=== PATIENT | male | born 1945 | race Caucasian/White ===

== ENCOUNTER 2016-09-11 06:29 | Inpatient (IN) | payer MEDICARE, OTHER ==
[~2016-09-11] VITALS: Ht 175.3 cm; Wt 70.0 kg
[2016-09-11] VITALS (14 sets, daily range): BP systolic 127–193; BP diastolic 68–102; PULSE 85–94; RESP 6–19; O2SAT 91–100
[~2016-09-11 06:29] MED LIST: ASPI-973 PO; CHOL200047 PO; CeFAZolin Inj 2 GM in IV Premix 1 EACH IV ONE; LIP40 PO; Lactated Ringer's 1,000 ML IV SCH; MAGN500C4 PO; OMEP20CA11 PO; RES30 PO; VIT1TABL83 PO; cilostazol
--- NOTE | 2016-09-11 08:14 | PCM.HPANE ---
Patient Data Surgeon Admitting Provider: Attending Provider:Rose Kaufman MD Primary Care Physician:Tita Delgado PA-C Other Provider:Glenroy Ruelas Anesthesia Reason for Visit Epiphrenic Diverticulum EPIPHRENIC DIVERTICULUM Ht/WT & BMI Height (Feet): 5 Height (Inches): 9.00 Weight (Kilograms): 67.100 Body Mass Index 21.00 Allergies Coded Allergies: No Known Allergies (Verified Allergy, Mild, 04/27/16) Past Anesthesia History Anesthesia History: Denies:: Abnormal Airway, Anesthesia Reactions, Difficult Intubation, Fam Anesthesia Reaction, Fam Malignant Hypertherm, Malignant Hyperthermia Diabetes History Hx Diabetes?: No MRSA MRSA: No Medications Blood Thinner: Aspirin Hypertension Medication: No Home Meds Incl Beta Matthias: No Reported Medications Vit B Comp/C/FA/Iron/Vit E (Vitamin B Complex Tablet)1 Each Tablet1 Each PO DAILY 09/06/16 Temazepam 30 Mg Cap30 Mg PO HS PRN For Insomnia 30 Days Ref 0 09/06/16 Magnesium Oxide (Magnesium)500 Mg [id number] Mg PO DAILY 09/06/16 [cilostazol] No Conflict [id number] Mg BID 05/15/16 Cholecalciferol (Vitamin D3) (Vitamin D3)2,000 Unit Capsule2,000 Unit PO 09/04/15 Omeprazole 20 Mg Capsule.dr20 Mg PO BID Ref 0 09/04/15 Atorvastatin (Lipitor)40 Mg [id number] Mg PO DAILY Ref 0 09/04/15 Aspirin 81 Mg [id number] Mg PO DAILY Ref 0 09/04/15 History History of ENT Problems?: Yes HEENT History: Positive for:: Dysphagia (r/t acid reflux, multiple dilations) Denies:: Abnormal Airway Cataracts Difficult Intubation Hearing Problem Sinus Problem Hx of Heart Problems?: Yes Cardiovascular History: Positive for:: Peripheral Vascular (claudication) Denies:: Cardiac Surgery Chest Pain Congestive Heart Failure Edema Hypertension Irregular Heartbeat Pacemaker Thrombophlebitis Hx of Respiratory Problem?: No Respiratory History: Denies:: Asthma COPD Oxygen Administration Pneumonia Tuberculosis Use of C-PAP Machine Use of Inhalers / NEBS Hx Neurologic Problems?: Yes Neurological History: Denies:: CVA Headaches (migraines) Hx of GI Problems?: Yes Gastrointestinal History: Positive for:: Gastroesphageal Reflux (esophageal diverticulum current admission problem) Heartburn Rectal Bleeding (Bleeding polyp in past) Denies:: Diverticulitis Gastrointestinal Bleeding Hepatitis Hiatal Hernia Hx of Problems?: No Male Hx: Denies:: Prostate Problems Scrotal Mass Testicular Surgery Skin History: Denies:: History Skin Disorders? Pressure Ulcers Hx Musculoskeletal Problems?: Yes Musculoskeletal History: Positive for:: Musculoskeletal Trauma (hx of left bunionectomy) Denies:: Joint Replacement Hx of Psycho/Social Problems?: No Hx Surgeries?: No (calcification removed from Left foot; umbilical hernia repair) Hx Any Other Health Problems?: Yes Other History: Denies:: Cancer Hospitalization Thyroid Disease History Blood Transfusions: Denies:: Blood Transfuse Reaction Blood Transfusions Hx Diabetes: No Hx Alcohol Use: YesAlcoholic Drinks Per Day: 2 drinks eveningHx Substance Use : No Smoking Status: Former Smoker Have You Smoked inLast 12 mo: No Stop/Bang Treated for Sleep Apnea?: No Do You Have a CPAP Machine?: No S-Snoring: Do You Snore Loudly: No T-Tired: feel tired, fatigued: No O-Obsered: Observed not breath: No P-Blood Pressure: treated: No B- Body Mass Index > 35 kg/m2: No A- Age over 50: Yes N- Neck Large Circumference: No G- Gender Male: Yes JULIET Total Score: 2 JULIET Risk Assessment: Low Risk, <3 Yes Risk Assessment Category Category 1A: Patient has history of documented sleep apnea, and HAS NOT received any narcotic, sedative or anesthesia administration during this stay. Category 1B: Patient has history of documented sleep apnea, and HAS received any narcotic , sedative or anesthesia administration during this stay Category 2: Patient has SUSPECTED Obstructive Sleep Apnea, and HAS received any narcotic , sedative or anesthesia administration during this stay. Category 3: Patient has SUSPECTED Obstructive Sleep Apnea and HAS NOT received narcotic, sedative or anesthesia administration during this stay. Category 4: Outpatient in Procedural Areas with known sleep apnea or who screen positive for High Risk via the STOP/BANG questionnaire. Exam Exam Vital Signs Vital Signs Date Time Temp Pulse Resp B/P Pulse Ox O2 Delivery O2 Flow Rate FiO2 09/11/16 07:32 36.6 88 19 165/94 97 Room Air 09/11/16 06:57 36.6 88 19 165/94 97 Room Air General Appearance: Alert, Oriented X3, Cooperative, No Acute Distress HEENT/AIRWAY: MP 2 Lungs: Clear to Auscultation, Normal Air Movement Heart: Exam Unremarkable, Regular Rate/Rhythm, No Murmurs/Rubs/Gallops Plan Impression Patient chart reviewed, patient interviewed and anesthestic plan with risks, benefits, and alternatives discussed, and informed consent obtained. NPO Status: MN ASA Physical Status: ASA2 Mod Systemic Disease Anesthetic Plan: GA Bene/Risks/Altern/Consents: Yes HP Complete Prior to Induction: Yes Hai Mendez MD Sep 11, 2016 08:14
[2016-09-11] MEDS ORDERED: Bupivacaine 0.5%/EPI 50 mL Inj INFILTRATE ONE (08:35)
[2016-09-11] MEDS ORDERED: Lactated Ringer's 1,000 ML IV ONE ×4 (08:35→14:00)
[2016-09-11] MEDS ORDERED: Bupivacaine-MPF 0.5% W/EPI 30 mL Inj INFILTRATE ONE (09:42)
[2016-09-11 10:31] LABS: COLOR,URINE STRAW (YELLOW)
[2016-09-11 10:32] LABS: APPEARANCE,URINE HAZY (CLEAR,HAZY); OCCULT BLOOD,URINE SMALL (NEGATIVE); UROBILINOGEN,URINE 0.2 mg/dL (NORMAL)
[2016-09-11] MEDS: Acetaminophen 32.5 mg/mL 20 mL Liquid PO SCH ×2 (14:45→19:46)
[2016-09-11] MEDS ORDERED: HYDROmorphone 1 mg/mL Inj IVPUSH PRN ×2 (14:45→15:05)
[2016-09-11] MEDS ORDERED: Ondansetron 2 mg/mL 2 mL Inj IVPUSH PRN ×2 (14:45→15:05)
[2016-09-11] MEDS ORDERED: MetoCLOpramide 5 mg/mL 2 mL Inj IVPUSH PRN ×2 (14:45→15:05)
[2016-09-11] MEDS ORDERED: oxyCODONE 1 mg/mL 5 mL Liquid PO PRN (14:45)
[2016-09-11] MEDS ORDERED: Lactated Ringer's 500 ML IV PRN (15:04)
[2016-09-11] MEDS ORDERED: Lactated Ringer's 1,000 ML IV SCH (15:04)
[2016-09-11] MEDS ORDERED: EPHEDrine Sulfate 50 mg/mL Inj IVPUSH PRN (15:05)
[2016-09-11] MEDS ORDERED: Phenylephrine 10,000 mCg/mL Inj IVPUSH PRN (15:05)
[2016-09-11] MEDS ORDERED: fentaNYL-PF 50 mCg/mL 2 mL Inj IVPUSH PRN (15:05)
[2016-09-11] MEDS ORDERED: Dexamethasone 4 mg/mL Inj IVPUSH PRN (15:05)
--- NOTE | 2016-09-11 15:08 | PCM.HPANE ---
Patient Data Surgeon Admitting Provider: Attending Provider:Rose Kaufman MD Primary Care Physician:Tita Delgado PA-C Other Provider:Glenroy Ruelas Anesthesia Reason for Visit Epiphrenic Diverticulum EPIPHRENIC DIVERTICULUM Ht/WT & BMI Height (Feet): 5 Height (Inches): 9.00 Weight (Kilograms): 67.100 Body Mass Index 21.00 Allergies Coded Allergies: No Known Allergies (Verified Allergy, Mild, 04/27/16) Past Anesthesia History Anesthesia History: Denies:: Abnormal Airway, Anesthesia Reactions, Difficult Intubation, Fam Anesthesia Reaction, Fam Malignant Hypertherm, Malignant Hyperthermia Diabetes History Hx Diabetes?: No MRSA MRSA: No Medications Blood Thinner: Aspirin Hypertension Medication: No Home Meds Incl Beta Matthias: No Reported Medications Vit B Comp/C/FA/Iron/Vit E (Vitamin B Complex Tablet)1 Each Tablet1 Each PO DAILY 09/06/16 Temazepam 30 Mg Cap30 Mg PO HS PRN For Insomnia 30 Days Ref 0 09/06/16 Magnesium Oxide (Magnesium)500 Mg [id number] Mg PO DAILY 09/06/16 [cilostazol] No Conflict [id number] Mg BID 05/15/16 Cholecalciferol (Vitamin D3) (Vitamin D3)2,000 Unit Capsule2,000 Unit PO 09/04/15 Omeprazole 20 Mg Capsule.dr20 Mg PO BID Ref 0 09/04/15 Atorvastatin (Lipitor)40 Mg [id number] Mg PO DAILY Ref 0 09/04/15 Aspirin 81 Mg [id number] Mg PO DAILY Ref 0 09/04/15 History History of ENT Problems?: Yes HEENT History: Positive for:: Dysphagia (r/t acid reflux, multiple dilations) Denies:: Abnormal Airway Cataracts Difficult Intubation Hearing Problem Sinus Problem Hx of Heart Problems?: Yes Cardiovascular History: Positive for:: Peripheral Vascular (claudication) Denies:: Cardiac Surgery Chest Pain Congestive Heart Failure Edema Hypertension Irregular Heartbeat Pacemaker Thrombophlebitis Hx of Respiratory Problem?: No Respiratory History: Denies:: Asthma COPD Oxygen Administration Pneumonia Tuberculosis Use of C-PAP Machine Use of Inhalers / NEBS Hx Neurologic Problems?: Yes Neurological History: Denies:: CVA Headaches (migraines) Hx of GI Problems?: Yes Gastrointestinal History: Positive for:: Gastroesphageal Reflux (esophageal diverticulum current admission problem) Heartburn Rectal Bleeding (Bleeding polyp in past) Denies:: Diverticulitis Gastrointestinal Bleeding Hepatitis Hiatal Hernia Hx of Problems?: No Male Hx: Denies:: Prostate Problems Scrotal Mass Testicular Surgery Skin History: Denies:: History Skin Disorders? Pressure Ulcers Hx Musculoskeletal Problems?: Yes Musculoskeletal History: Positive for:: Musculoskeletal Trauma (hx of left bunionectomy) Denies:: Joint Replacement Hx of Psycho/Social Problems?: No Hx Surgeries?: No (calcification removed from Left foot; umbilical hernia repair) Hx Any Other Health Problems?: Yes Other History: Denies:: Cancer Hospitalization Thyroid Disease History Blood Transfusions: Denies:: Blood Transfuse Reaction Blood Transfusions Hx Diabetes: No Hx Alcohol Use: YesAlcoholic Drinks Per Day: 2 drinks eveningHx Substance Use : No Smoking Status: Former Smoker Have You Smoked inLast 12 mo: No Stop/Bang Treated for Sleep Apnea?: No Do You Have a CPAP Machine?: No S-Snoring: Do You Snore Loudly: No T-Tired: feel tired, fatigued: No O-Obsered: Observed not breath: No P-Blood Pressure: treated: No B- Body Mass Index > 35 kg/m2: No A- Age over 50: Yes N- Neck Large Circumference: No G- Gender Male: Yes JULIET Total Score: 2 JULIET Risk Assessment: Low Risk, <3 Yes Risk Assessment Category Category 1A: Patient has history of documented sleep apnea, and HAS NOT received any narcotic, sedative or anesthesia administration during this stay. Category 1B: Patient has history of documented sleep apnea, and HAS received any narcotic , sedative or anesthesia administration during this stay Category 2: Patient has SUSPECTED Obstructive Sleep Apnea, and HAS received any narcotic , sedative or anesthesia administration during this stay. Category 3: Patient has SUSPECTED Obstructive Sleep Apnea and HAS NOT received narcotic, sedative or anesthesia administration during this stay. Category 4: Outpatient in Procedural Areas with known sleep apnea or who screen positive for High Risk via the STOP/BANG questionnaire. Low Risk, <3 Yes Exam Exam Vital Signs Vital Signs Date Time Temp Pulse Resp B/P Pulse Ox O2 Delivery O2 Flow Rate FiO2 09/11/16 14:55 94 6 167/91 91 Room Air 09/11/16 14:50 89 12 159/88 100 Simple Mask 10 09/11/16 14:45 89 16 149/78 99 Simple Mask 10 09/11/16 14:39 36.4 91 12 127/68 100 Simple Mask 10 09/11/16 07:32 36.6 88 19 165/94 97 Room Air General Appearance: Alert, Oriented X3, Cooperative, No Acute Distress HEENT/AIRWAY: MP 2 Lungs: Clear to Auscultation, Normal Air Movement Heart: Exam Unremarkable, Regular Rate/Rhythm, No Murmurs/Rubs/Gallops Meds/Labs/Diagnostics Admission Meds Current Medications Cefazolin Sodium/ Dextrose 2 gm/ Premix 50 ml @ 100 mls/hr PREOP ONCE IV Last administered on 09/11/16 08:40; Start 09/11/16 at 06:00; Stop 09/11/16 at 06: 29; Status DC Lactated Ringer's 1,000 ml @ ud STK-MED ONCE IV Last administered on 09/11/16 08:35; Start 09/11/16 at 08:35; Stop 09/11/16 at 10:40; Status DC Lactated Ringer's 1,000 ml @ ud STK-MED ONCE IV Last administered on 09/11/16 10:23; Start 09/11/16 at 10:23; Stop 09/11/16 at 10:40; Status DC Lactated Ringer's (Lr) 1,000 ml @ ud STK-MED ONCE IV Last administered on 12:56; Start 09/11/16 at 12:56; Stop 09/11/16 at 12:57; Status DC Cefazolin Sodium (Ancef Inj) 2 gm STK-MED ONCE IVPUSH Last administered on 13:20; Start 09/11/16 at 13:20; Stop 09/11/16 at 13:32; Status DC Bupivacaine HCl/ Epinephrine Bitart 50 ml 50 ml STK-MED ONCE INFILTRATE Last administered on 09/11/16 08:35; Start 09/11/16 at 08:35; Stop 09/11/16 at 14:26; Status DC Lactated Ringer's (Lr) 1,000 ml @ ud STK-MED ONCE IV Last administered on 14:00; Start 09/11/16 at 14:00; Stop 09/11/16 at 14:27; Status DC Labs Test 09/11/16 10:14 Urine Color Straw (YELLOW) Urine Appearance Hazy (CLEAR,HAZY) Urine pH 8.0 (5.0-8.0) Urine Specific [place] 1.015 (1.003-1.035) Urine Protein Negativemg/dL (NEG,TRACE) Urine Glucose (UA) Negativemg/dL (NEGATIVE) Urine Ketones Tracemg/dL (NEGATIVE) Urine Occult Blood Small (NEGATIVE) Urine Nitrite Negative (NEGATIVE) Urine Bilirubin Negative (NEGATIVE) Urine Urobilinogen 0.2mg/dL (NORMAL) Urine Leukocyte Esterase Negative (NEGATIVE) Urine RBC 11-50/hpf (0-2) Urine WBC 0-5/hpf (0-5) Urine Epithelial Cells Occasional/hpf (NONE-MOD) Urine Crystals None seen (NONE SEEN) Urine Bacteria Few/hpf (NONE-FEW) Urine Hyaline Casts None/lpf (NONE) Urine Granular Casts None seen (NONE SEEN) Urine Waxy Casts None seen (NONE SEEN) Urine Red Blood Cell Casts None seen (NONE SEEN) Urine White Blood Cell Casts None seen (NONE SEEN) Urine Mucus Present (None Seen) Urine Trichomonas None seen (NONE SEEN) Urine Yeast None (NONE SEEN) Urinalysis Comment None Urine Culture Reflexed Not indicated Plan Impression Patient chart reviewed, patient interviewed and anesthestic plan with risks, benefits, and alternatives discussed, and informed consent obtained. NPO Status: 09/09/16 2200 ASA Physical Status: ASA2 Mod Systemic Disease Anesthetic Plan: GA Bene/Risks/Altern/Consents: Yes HP Complete Prior to Induction: Yes Hai Mendez MD Sep 11, 2016 15:08
--- NOTE | 2016-09-11 15:09 | PCM.ANEP1 ---
Post Anesthesia Phase 1 PACU Phase 1 Assessment Vital Signs Vital Signs Date Time Temp Pulse Resp B/P Pulse Ox O2 Delivery O2 Flow Rate FiO2 09/11/16 14:55 94 6 167/91 91 Room Air 09/11/16 14:50 89 12 159/88 100 Simple Mask 10 09/11/16 14:45 89 16 149/78 99 Simple Mask 10 09/11/16 14:39 36.4 91 12 127/68 100 Simple Mask 10 09/11/16 07:32 36.6 88 19 165/94 97 Room Air Anesthetic Administered: GA Level of Alertness: Sleepy, easy to arouse PENG's with Equal Strength: Yes Pain: No Nausea or Vomiting: No Airway Device: Endotrachial Tube Oxygen Delivery: Simple Mask Lungs: Clear to Auscultation, Normal Air Movement Dermatome Level: Full Sensation Hai Mendez MD Sep 11, 2016 15:09
--- NOTE | 2016-09-11 15:09 | PCM.ANEP2 ---
Post Anesthesia Evaluation ASA/CMS Post Anesthesia VS in Patient's Normal Range?: Yes Resp Stable; Airway Patent?: Yes CV Function & Hydration Stable: Yes Mental Status Recovered?: Yes Pain control Satisfactory?: Yes N/V Control Satisfactory?: Yes Hai Mendez MD Sep 11, 2016 15:09
[2016-09-11 15:23] LABS: Mean Corpuscular Volume 98.1 fL (81-100)
--- NOTE | 2016-09-11 16:09 | OP ---
[address] [address] OPERATIVE REPORT PATIENT: OBINNA RODRÍGUEZ : 1945 MR#: [id number] ADMIT: 09/11/2016 JOB ID: [id number] DATE OF SURGERY: 09/11/2016 PREOPERATIVE DIAGNOSIS(ES): Epiphrenic diverticulum with jackhammer esophagus. POSTOPERATIVE DIAGNOSIS(ES): Epiphrenic diverticulum with jackhammer esophagus. PROCEDURE PERFORMED: 1. Laparoscopic esophageal and extended gastric myotomy with Toupet fundoplication. 2. Upper endoscopy. SURGEON: Rose Kaufman MD. ASSISTANTS: Paul Clarke MD; Tavon Read PA-C; LOREN Coy. Dr. Clarke's presence was necessary for retraction and intraoperative decision making, and Tavon Read's presence was necessary for retraction and driving the camera. HISTORY OF PRESENT ILLNESS: This is a 71-year-old man with a history of many years of dysphagia. He was undergoing serial dilations by a health companion in [place] without effect. He then moved to this area and was found to have an epiphrenic diverticulum by his health companion here. He was referred to my clinic, and esophageal manometry was performed confirming the presence of a jackhammer esophagus. He also had a small hiatal hernia and a benign-appearing stricture distal to the epiphrenic diverticulum on upper endoscopy. Based on his overall findings, he was consented to esophageal myotomy to treat the jackhammer esophagus, with possible epiphrenic diverticulectomy depending on intraoperative findings. FINDINGS: 1. Extremely thick distal esophageal circular muscle layer distal to the epiphrenic diverticulum. 2. A long esophageal myotomy was completed, to 9 cm above the GE junction, which was at the base of the diverticulum. An extended gastric myotomy 3 cm onto the stomach was performed. DESCRIPTION OF PROCEDURE: The patient was brought to the operating room and placed in supine position. General anesthesia was induced. A warming blanket and SCDs were placed. Antibiotics were infused. The operative field was prepped and draped in sterile fashion. A pause was performed to confirm the correct patient, procedure, and site. A Veress needle was used via a 10-mm port site in the left upper quadrant to insufflate the abdomen. A trocar was inserted using Optiview technique. An additional 10-mm trocar was inserted in the left mid abdomen. Two additional 5-mm ports were placed in the left lateral and left mid abdomen, a 5-mm port was placed in the right upper abdomen, and in the right lateral abdomen, initially a 5-mm port was placed for the use of the liver retractor, but ultimately had to be upsized to 10 mm in order to use the paddle retractor due to the size of the liver. The stomach was identified, and the phrenogastric ligament was taken down sharply. The short gastrics were taken down using the LigaSure device. Dissection of the hiatus began on the left. The phrenogastric ligament was divided, and the mediastinum was entered. A circumferential dissection was begun at this location. It proceeded from anterior to posterior and then attention was moved to the right. The gastrohepatic ligament was divided up to the right jermaine and the mediastinum was entered on the right. The circumferential dissection at the hiatus was completed, and a [place] drain was inserted and placed around the esophagus at the GE junction. Once the esophagus could be retracted using the [place], the circumferential dissection proceeded proximally high into the mediastinum. The inferior aspect of the epiphrenic diverticulum was identified several cm above the hiatus. Upper endoscopy was then performed to confirm the location of the epiphrenic diverticulum. The esophagus, as noted before surgery, was very torturous and appeared to be strictured distal to the diverticulum. In particular, right at the GE junction, the scope could only be passed into the stomach with a fair amount of gentle pressure because the stricture had worsened even in the interval since the previous endoscopy. The diverticulum was found to be full of old foodstuff and was located at least 6 cm above the hiatus. Dr. Clarke observed the endoscopy via laparoscopy while I advanced the scope in the stomach. Once the endoscopy was complete, the scope was left with the tip in the stomach to be used later in the case. At this point, the diverticulum was noted to be high enough in the mediastinum that the decision was made to proceed with myotomy only. As noted above, the patient had been extensively counseled to this possibility preoperatively. The anterior vagus was then identified and preserved while the GE junction fat pad was removed to expose the anterior aspect of the lower esophageal sphincter. The GE junction fat pad was then removed from the body and discarded. Of note, the posterior vagus was also identified and preserved throughout the case. The myotomy was then began 1 cm proximal to the gastroesophageal junction with retraction onto the endoscope which was still in place. This progressed proximally. As the myotomy progressed, it became evident that the circular layer of muscle was extremely thick and hypertrophied in the location just distal to the diverticulum. As I was dissecting in the mediastinum, it appeared to be at least 0.75-1 cm in thickness at this layer. Based on esophageal manometry, the goal was to complete the myotomy at least 8-10 cm above the hiatus. At 8 cm above the hiatus, the muscular wall dissipated and only mucosa was exposed, presumably at the location of the diverticulum. At this point, I performed an extended gastric myotomy 3 cm onto the stomach. The entire myotomy was on the anterior aspect of the esophagus and stomach. Once the myotomy was complete, the endoscope was then used to visualize the stomach, confirm that the stricture had been significantly improved at the GE junction, and the esophagus was gently insufflated with air while Dr. Clarke used water to perform an air leak test. There was no leak. The endoscope was gently removed and the release of the stricture appeared successful. The esophagus was retracted to the patient's left and the crura were visualized. They were reapproximated with four interrupted stitches. Attention was then turned to the Toupet fundoplication. A marking stitch was placed on the posterior fundus, 3 cm distal to the gastroesophageal junction and 2 cm posterior to the greater curvature. This was brought around posteriorly to align the geometry of the Toupet fundoplication. The first stitch was placed in the fundus, to the right-sided aspect of the esophageal myotomy, and into the right jermaine. A second stitch was placed in the right fundus and to the posterior aspect of the right jermaine. Two additional stitches were then placed from the right side of the fundoplication to the right side of the myotomy. Attention was then turned to the left side of the fundoplication. The appropriate portion of fundus to create the wrap was fashioned to size such that there was no redundant fundus. The first stitch was placed between the stomach, left-sided myotomy, and left jermaine. Two additional stitches were then placed from the left side of the fundoplication to the left-sided esophageal myotomy. Once the procedure was complete, the 10-mm port sites in the right lateral abdomen and mid abdomen were closed with interrupted 0 PDS using a fascial closure device. The remaining ports were removed under direct vision and the abdomen was desufflated. Then, 0.5% Marcaine with epinephrine was infused at all port sites. Skin was closed with 4-0 Monocryl. Sterile dressings were placed. The patient was awakened from general anesthesia and taken to the postoperative care unit in good condition. COMPLICATIONS: None. ESTIMATED BLOOD LOSS: 2 mL. SPECIMENS: GE junction fat pad, discarded. A Modifier 22 is requested because due to the distance above the GE junction of esophageal contractions on esophageal manometry and the unusual nature of the case, it took approximately twice the usual amount of time. MTDD
--- NOTE | 2016-09-11 16:25 | NUR ---
Arrived on Unit Patient arrived on floor from PACU in stable condition. Staff assisted patient transferring from stretcher to bed. Patient reported 3/10 abdominal pain. Denies nausea. A&Ox3. BP elevated, patient baseline 160/80. Oriented to call light, bed, and TV. at bedside. Call light and tray table within reach. Will continue to monitor patient hourly.
[2016-09-11] MEDS ORDERED: HYDROmorphone 2 mg/mL Inj ONE (16:48)
[2016-09-11] MEDS ORDERED: Ketamine 10 mg/mL 20 mL Inj ONE (16:48)
[2016-09-11] MEDS ORDERED: fentaNYL-PF 50 mCg/mL 2 mL Inj ONE (16:48)
[2016-09-11] MEDS: Dextrose 5% Lactated Ringer's 1,000 ML IV SCH (16:48)
--- NOTE | 2016-09-11 19:11 | NUR ---
LEVEL OF CONSCIOUSNESS P: Pt arrived to floor alert and oriented. Within 20 minutes, pt had a slight decrease in level of consciousness. Surgery and anesthesia was 6 hours. Pt has history of dysphagia. Increased risk of aspiration. I: Patient on continuous pulse ox. Wall suction in the room in and ready to use in the case of possible aspiration due to gastric emesis. E: Patient's O2 levels consistently above 98% with O2 on 2L. Suction not needed, however it's available. S: Bed set to low, 2 bed rails up. Pt wearing nonskid socks. Suction education and it's use provided to patient and suction is within patient's reach. Reinforced need to call for assistance before getting out of bed.
[2016-09-11] MEDS: Heparin 5,000 Unit/mL Inj SUBQ SCH (19:45)
[2016-09-11] MEDS: hydrALAZINE 20 mg/mL Inj IV PRN (22:19)
[2016-09-12 00:14] VITALS: BP 156/84; PULSE 92; RESP 16; O2SAT 99
--- NOTE | 2016-09-12 01:41 | NUR ---
High BP MORTUARY TECHNICIAN reported to this RN about pt's hypertension. Pt's BP was 193/102. MD Mandeep paged. MD Mandeep ordered IV hydralazine. Admin IV hydralazine. Pt's BP is now 156/84. Will continue to monitor.
[2016-09-12] MEDS: Dextrose 5% Lactated Ringer's 1,000 ML IV SCH ×2 (03:21→15:41)
[2016-09-12] MEDS: Acetaminophen 32.5 mg/mL 20 mL Liquid PO SCH ×4 (03:23→22:23)
[2016-09-12] MEDS: Heparin 5,000 Unit/mL Inj SUBQ SCH ×3 (03:25→17:59)
[2016-09-12 05:46] LABS: BASOPHILS % (AUTO) 0 % (0-3); EOSINOPHILS % (AUTO) 0 % (0-5); Mean Corpuscular Hemoglobin 31.6 pg (27.0-35.0); NEUTROPHILS % (AUTO) 81.3 % (40-74); Platelet Count 241 bil/L (150-400)
[2016-09-12 05:47] VITALS: BP 163/83; PULSE 81; RESP 16; O2SAT 99
--- NOTE | 2016-09-12 06:15 | NUR ---
Romo d/c Romo d/c at 0600. 10 ml of saline taken out. Pt. tolerated procedure well. Pt. aware of void trial. Urinal by bedside.
[2016-09-12 08:07] VITALS: BP 154/80; PULSE 90; RESP 16; O2SAT 96
[2016-09-12] MEDS ORDERED: OXYC5SOL11 PO (08:22)
--- NOTE | 2016-09-12 08:23 | PCM.DISURG ---
Surgical Discharge Instruction Date of Service Sep 12, 2016 Dates of Hospitalization Date of Hospital Admission Sep 11, 2016 at 16:47 Providers Admitting Physician: Rose Kaufman MD Primary Care Physician: Tita Delgado PA-C Attending Physician: Rose Kaufman MD Discharge Diagnosis Discharge Diagnosis Jackhammer esophagus, epiphrenic diverticulum Diet Discharge Diet: Other (liquids for two weeks) Activity Discharge Activity-General: Be up and about, No lifting >15 pounds for 2 weeks Dressing and Incisional Care Dressing Care: Allow Steri Stripes to fall off, Remove outer dressing after 24 hrs Hygiene: May shower Follow Up Plan Follow Up Plan Follow up with Dr. Kaufman in 2 weeks Call your provider for: Fever, Chills, Shortness of breath, Increasing abdominal pain, Nausea, Discharge @ incision, pus discharge Rose Kaufman MD Sep 12, 2016 08:23
--- NOTE | 2016-09-12 08:26 | PCM.PNSURG ---
Subjective Visit Information: Reason for Visit Epiphrenic Diverticulum Surgery/Surgery Date Lap Esophageal Myotomy 09/11/16 Post-Op Day # Date of Admission: Sep 11, 2016 at 16:47 Hospital Day # Subjective: Stable overnight. 780ml PO, he has less dysphagia than preop. hypertensive, received hydralazine. Romo is out and he has voided. c/o mild incisional pain. No N/V. Objective Vital Sign- Last 8 Hours Date Time Temp Pulse Resp B/P Pulse Ox O2 Delivery O2 Flow Rate FiO2 09/12/16 08:07 36.8 90 16 154/80 96 Nasal Cannula 2.00 09/12/16 05:47 36.4 81 16 163/83 99 Nasal Cannula 2.00 Intake and Output- Last 8 Hour 09/12/16 Cumulative From/Thru 07:00 09/06/16 15:20 - 09/12/16 06:06 Intake Total 1832 ml 5382 ml Output Total 2951 ml 4511 ml Balance -1119 ml 871 ml Intake Oral 780 ml 780 ml IV Total 1052 ml 4602 ml Output Urine Total 2950 ml 4500 ml Drainage Total 1 ml 1 ml Estimated Blood Loss 10 ml # Bowel Movements 0 0 General: Alert, Oriented X3, Cooperative, No Acute Distress Abdomen: Soft, Appropriately tender, Non-distended Result Diagram: 09/12/1624 09/12/16523 Assessment & Plan Impression 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 If this looks normal/expected, advance to full liquids. Nutrition consult. Liquid analgesia. All meds crushed/liquid. Possible d/c later today vs. tomorrow. Continue hydralazine for hypertension while inpt. Rose Kaufman MD Sep 12, 2016 08:26
--- NOTE | 2016-09-12 10:55 | NUR ---
RD Diet Education Pureed diet education completed. Please see RD: Dietary Teaching Record under Care Activity for further information regarding education.
--- NOTE | 2016-09-12 11:17 | DRSVH ---
PROCEDURE: X-RAY GASTROGRAPHIN STUDY OF ESOPHAGUS/PHARYNX ([id number]) INDICATIONS: routine s/p esoph myotomy COMPARISON: [facility], CR, XR BARIUM SWALLOW ESOPHAGUS, 10/13/2015, 8:50. FINDINGS: Limited esophagram demonstrates moderate size epiphrenic diverticulum measuring roughly 2.7 cm unchan ged from prior esophagram. There is severe esophageal dysmotility with spontaneous tertiary contract ions noted throughout the distal esophagus. Toupet fundoplication appears to be intact and there is no extravasation of contrast media. Stomach is grossly normal. The attending physician was personall y present in the room during the examination. IMPRESSION: 1. Severe esophageal dysmotility. 2. 2.7 cm epiphrenic diverticulum redemonstrated. 3. Intact fundoplication no extravasation of contrast media. Dictated by: Andrea PROCTOR Interpreted: Porfirio Toledo MD on 09/12/2016 at 11:14 Transcribed by: BERTRAND on 09/12/2016 at 11:16 Approved by: Porfirio Toledo M.D. on 09/13/2016 at 13:32
--- NOTE | 2016-09-12 12:15 | NUR ---
Social Work Initial Assessment: SW met with patient at bedside to discuss discharge plan. Patient is a 71 year old male admitted on 09/11/16 for epiphrenic diverticulum. Patient payer as Medicare and [employer]. Patient has no [employer] disability nor VA benefits. Patient PCP as MD Delgado. Patient resides in [place] with significant other Bernarda, . Patient resides in a one story home with 2 steps to enter home. Patient has no previous HHC, SNF, or AD history. Patient states being independent with needs at baseline prior to admit and states having no identified discharge needs at this time. SW to follow. PLAN: Home with significant other Bernarda, via POV. SW to follow pending clinical course Megan MEHTA Addendum: 09/12/16 at 1219 by CJ ROSARIO SS Amended: Links added.
[2016-09-12 13:04] VITALS: BP 135/66; PULSE 98; RESP 16; O2SAT 94
[2016-09-12 16:41] VITALS: BP 156/87; PULSE 85; RESP 16; O2SAT 94
--- NOTE | 2016-09-12 19:31 | NUR ---
Activity Pt having no c/o pain during shift. Is having multiple episodes of liquid stool with some incontinence. Pt up to BR w/o using call light and discussed with pt he is fall risk because of history of right foot drop. Night RN to put Bette in place. Called and discussed diarrhea with MD and no guaiac needed at this time, but will order CBC for tomorrow AM. Plan for pt to d/c tomorrow. Removed ZANE drain today. Romo removed this AM and pt able to void w/o problems.
[2016-09-12 19:51] VITALS: BP 164/89; PULSE 90; RESP 16; O2SAT 96
[2016-09-13 00:28] VITALS: BP 180/91; PULSE 82; RESP 16; O2SAT 96
[2016-09-13 00:32] VITALS: BP 192/102
[2016-09-13] MEDS: hydrALAZINE 20 mg/mL Inj IV PRN (00:38)
[2016-09-13 01:27] VITALS: BP 161/82
[2016-09-13] MEDS: Heparin 5,000 Unit/mL Inj SUBQ SCH ×2 (01:28→09:42)
--- NOTE | 2016-09-13 01:34 | NUR ---
HTN At 0030 MECHANICAL TECHNICIAN reported BP of 180/91 on the L arm and 192/102 on the right. Patient denies any SOB, chest pain, anxiety or pain. 10mg Hydralazine IVP for HTN was given. Upon reassessment at 0127 BP was 161/82. Patient continues to deny any CP, SOB, anxiety, or pain. Will continue to monitor, and continue Q 1 hour checks.
[2016-09-13] MEDS: Acetaminophen 32.5 mg/mL 20 mL Liquid PO SCH ×2 (03:54→09:33)
[2016-09-13] MEDS: Dextrose 5% Lactated Ringer's 1,000 ML IV SCH (04:11)
[2016-09-13 04:57] VITALS: BP 171/89; PULSE 92; RESP 16; O2SAT 94
[2016-09-13 05:34] LABS: Mean Corpuscular Hemoglobin 31.6 pg (27.0-35.0); Mean Corpuscular Volume 95.7 fL (81-100)
--- NOTE | 2016-09-13 08:32 | PCM.PNSURG ---
Subjective Visit Information: Reason for Visit Epiphrenic Diverticulum Surgery/Surgery Date Lap Esophageal Myotomy 09/11/16 Post-Op Day # Date of Admission: Sep 11, 2016 at 16:47 Hospital Day # Subjective: Diarrhea overnight. High blood pressure, responsive to hydralazine. Tolerating CLD. WBC remains normal. VS otherwise normal. UGI without leak and with adequate passage of contrast into the stomach. Drain removed. Objective Vital Sign- Last 8 Hours Date Time Temp Pulse Resp B/P Pulse Ox O2 Delivery O2 Flow Rate FiO2 09/13/16 04:57 36.6 92 16 171/89 94 Room Air 09/13/16 01:27 161/82 09/13/16 00:32 192/102 Intake and Output- Last 8 Hour 09/13/16 Cumulative From/Thru 07:00 09/06/16 15:20 - 09/13/16 05:46 Intake Total 560 ml 7481 ml Output Total 825 ml 5566 ml Balance -265 ml 1915 ml Intake Oral 560 ml 2685 ml IV Total 4796 ml Output Urine Total 825 ml 5550 ml Drainage Total 6 ml Estimated Blood Loss 10 ml # Voids 2 6 # Bowel Movements 2 3 General: Alert, Oriented X3, Cooperative Abdomen: Soft, Appropriately tender, Other (incisions c/d/i) Result Diagram: 09/13/16 0515 09/12/16 0524 Assessment & Plan Impression POD2 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
[2016-09-13] MEDS ORDERED: HYDR-3938 PO (08:37)
--- NOTE | 2016-09-13 12:47 | NUR ---
Discharge Patient discharged home with spouse . Pt will follow up with surgeon in 2 weeks as directed. Prescription given for pain meds. Discharge instructions given verbally and written . Pt agrees to understanding them.
--- NOTE | 2016-09-13 13:45 | NUR ---
Social Work Discharge: SW met with patient at bedside to discuss discharge plan. Order for discharge acknowledged. Patient states plan as home with significant other Bernarda, who to assist with needs and who to provide support and care. Patient denied any [facility] related needs at this time. SW to follow. PLAN: Home with significant other pending clinical course. Transport via [facility] [place]
--- NOTE | 2016-09-16 09:33 | PCM.DC.SUR ---
Discharge Summary Date of Service: Date of Hospital Admission: Sep 11, 2016 at 16:47 Date of Operation(s): 09/11/2016 Date of Discharge: 09/13/2016 Diagnosis at Time of Discharge Primary diagnoses: 1. Epiphrenic diverticulum with jackhammer esophagus 2. Hypertension 3. Postsurgical diarrhea. Other diagnoses: 1. Hyperlipidemia 2. GERD 3. Claudication 4. Colon polyps 5. 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 Former cigarette smoker Problems: Operation 1. Laparoscopic esophageal and gastric myotomy with Toupet fundoplication. 2. Upper endoscopy. Brief History and Physical: This is a 71-year-old man with a history of many years of dysphagia. He was undergoing serial dilations by a jigger artisan in [place] without effect. He then moved to this area and was found to have an epiphrenic diverticulum by his jigger artisan here. He was referred to general surgery and esophageal manometry was performed confirming the presence of a jackhammer esophagus. He also had a small hiatal hernia and a benign-appearing stricture distal to the epiphrenic diverticulum on upper endoscopy. Based on his overall findings, he was consented to esophageal myotomy to treat the jackhammer esophagus, with possible epiphrenic diverticulectomy depending on intraoperative findings Consultants: None Hospital Course: The patient was admitted and underwent the above-mentioned operations without complication. The following day upper endoscopy did not demonstrate leak. Liquid diet was initiated. Postsurgical hypertension was recalcitrant to hydralazine and present through the time of discharge. Discharge was delayed by one day for overnight diarrhea. Pathology: None Disposition: The patient was discharged to home on his second postsurgical day with blood pressures ranging from 192/101-161/82. At the time of discharge presurgical dysphagia had been improved upon significantly, wounds were dry and intact, pain was well controlled on oral analgesic, and the patient was at his baseline level of ambulation. Follow-up Plan: He will follow-up in the office with Dr. Kaufman in 2 weeks. ([cilostazol]) 100 MG BID (Reported) Aspirin (Aspirin) 81 Mg Tablet 81 MG PO DAILY (Reported) Atorvastatin (Lipitor) 40 Mg Tablet 40 MG PO DAILY (Reported) Cholecalciferol (Vitamin D3) (Vitamin D3) 2,000 Unit Capsule 2,000 UNIT PO ( Reported) Hydralazine (Hydralazine) 10 Mg Tablet 10 MG PO QID Magnesium Oxide (Magnesium) 500 Mg Capsule 500 MG PO DAILY (Reported) Temazepam (Temazepam) 30 Mg Cap 30 MG PO HS PRN PRN For Insomnia (Reported) Vit B Comp/C/FA/Iron/Vit E (Vitamin B Complex Tablet) 1 Each Tablet 1 EACH PO DAILY (Reported) oxyCODONE (oxyCODONE) 5 Mg/5 Ml Solution 5-10 MG PO Q4H PRN PRN For Severe Pain copies to: Tita Delgado PA-C, Fred H PA-C Sep 16, 2016 09:33
--- NOTE | 2016-09-16 09:34 | PCM.DC.SUR ---
Discharge Summary Date of Service: Date of Hospital Admission: Sep 11, 2016 at 16:47 Date of Operation(s): 09/11/16 Date of Discharge: 09/13/16 Diagnosis at Time of Discharge Primary Diagnosis: Epiphrenic diverticulum with jackhammer esophagus. Secondary diagnosis: Problems: Operation 1. Laparoscopic esophageal and gastric myotomy with Toupet fundoplication. 2. Upper endoscopy. Brief History and Physical: This is a 71-year-old man with a history of many years of dysphagia. He was undergoing serial dilations by a summer school coordinator in [place] without effect. He then moved to this area and was found to have an epiphrenic diverticulum by his summer school coordinator here. He was referred to my clinic, and esophageal manometry was performed confirming the presence of a jackhammer esophagus. He also had a small hiatal hernia and a benign-appearing stricture distal to the epiphrenic diverticulum on upper endoscopy. Based on his overall findings, he was consented to esophageal myotomy to treat the jackhammer esophagus, with possible epiphrenic diverticulectomy depending on intraoperative findings. Hospital Course: POD # [address] Kaufman's progress note Subjective: Stable overnight. 780ml PO, he has less dysphagia than preop. hypertensive, received hydralazine. Romo is out and he has voided. c/o mild incisional pain. No N/V. General: Alert, Oriented X3, Cooperative, No Acute Distress Abdomen: Soft, Appropriately tender, Non-distended Assessment & Plan Plan UGI this am. If this looks normal/expected, advance to full liquids. Nutrition consult. Liquid analgesia. All meds crushed/liquid. Possible d/c later today vs. tomorrow. Continue hydralazine for hypertension while inpt. POD # [address] Kaufman's progress note Subjective: Diarrhea overnight. High blood pressure, responsive to hydralazine. Tolerating CLD. WBC remains normal. VS otherwise normal. UGI without leak and with adequate passage of contrast into the stomach. Drain removed. Abdomen: Soft, Appropriately tender, Other (incisions c/d/i) Result Diagram: 09/13/16 0515 Assessment & Plan Discharge today F/U with PCP re: hypertension Pathology: NONE Disposition: Home Follow-up Plan: Follow up with Dr. Kaufman in 2 weeks ([cilostazol]) 100 MG BID (Reported) Aspirin (Aspirin) 81 Mg Tablet 81 MG PO DAILY (Reported) Atorvastatin (Lipitor) 40 Mg Tablet 40 MG PO DAILY (Reported) Cholecalciferol (Vitamin D3) (Vitamin D3) 2,000 Unit Capsule 2,000 UNIT PO ( Reported) Hydralazine (Hydralazine) 10 Mg Tablet 10 MG PO QID Magnesium Oxide (Magnesium) 500 Mg Capsule 500 MG PO DAILY (Reported) Temazepam (Temazepam) 30 Mg Cap 30 MG PO HS PRN PRN For Insomnia (Reported) Vit B Comp/C/FA/Iron/Vit E (Vitamin B Complex Tablet) 1 Each Tablet 1 EACH PO DAILY (Reported) oxyCODONE (oxyCODONE) 5 Mg/5 Ml Solution 5-10 MG PO Q4H PRN PRN For Severe Pain copies to: Tita Delgado PA-C, Sherri L PA-C Sep 16, 2016 09:34
== END 2016-09-13 12:39 | disposition home or self-care (01) | DRG 328 ==
LOC: SAS 06:29 → OSC 16:47
PROVIDERS: ADMIT Surgery; ATTEND Surgery
PROC: 0DB44ZZ Excision of Esophagogastric Junction, Percutaneous Endoscopic Approach (ICD-10-PCS; principal; 2016-09-11 08:30)
DX: K22.5 Diverticulum of esophagus, acquired (principal); I10 Essential (primary) hypertension; E78.5 Hyperlipidemia, unspecified; K21.9 Gastro-esophageal reflux disease without esophagitis; Z87.891 Personal history of nicotine dependence; I73.9 Peripheral vascular disease, unspecified

== ENCOUNTER → 2017-02-25 | Day surgery (SDC) | payer MEDICARE, OTHER ==
[~2017-02-25] MED LIST changes: -CeFAZolin Inj 2 GM in IV Premix 1 EACH IV ONE; +HYDR-3938 PO; -Lactated Ringer's 1,000 ML IV SCH; +Lidocaine Topical 2% 30 mL Jelly ONE; -OMEP20CA11 PO; +OXYC5SOL11 PO
== END | disposition home or self-care (01) ==
LOC: END 00:34
PROVIDERS: ATTEND Surgery
DX: K22.5 Diverticulum of esophagus, acquired (principal)